=== PATIENT | male | born 1990 | race Caucasian/White ===

== ENCOUNTER 2016-07-11 09:51 | Emergency (ER) | payer BC, OTHER ==
--- NOTE | 2016-07-11 10:28 | EDPHY ---
H & P Time Seen by Provider: 07/11/16 10:00 HPI/ROS: CHIEF COMPLAINT: right hand pain HISTORY OF PRESENT ILLNESS: Patient is a 25-year-old male presents to the emergency department of right hand pain after punching a wall last evening. He states he has isolated pain at the base of his right 5th metacarpal. He sustained no other injury. He states he has previously injured his hand while punching a wall in this required surgery. REVIEW OF SYSTEMS: My complete review of systems is negative except as mentioned in the HPI. Past Medical/Surgical History: Right hand surgery Smoking Status: Never smoked Physical Exam: General Appearance: Alert and no distress. Head: Pupils equal. Normal. Respiratory: No respiratory distress. Cardiac: regular rate and rhythm. Extremities: patient has swelling over his right 4th and 5th metacarpal. There is tenderness palpation at the base of the right 4th and 5th metacarpal. No wrist tenderness palpation. No forearm, elbow or humerus tenderness palpation. The phalanges are nontraumatic and nontender. Skin: No rashes or lesions. Neuro: Alert. Normal mood and affect. Constitutional: Initial Vital Signs Temperature (C) 36.6 C 07/11/16 09:52 Heart Rate 69 07/11/16 09:52 Respiratory Rate 16 07/11/16 09:52 Blood Pressure 132/76 H 07/11/16 09:52 O2 Sat (%) 97 07/11/16 09:52 O2 Delivery Mode Room Air Allergies/Adverse Reactions: No Known Allergies Allergy (Unverified 10/27/10 16:48) Home Medications: Medication Instructions Recorded NK [No Known Home Meds] 07/11/16 Medical Decision Making ED Course/Re-evaluation: In the emergency department an x-ray was ordered. Right hand x-ray: Patient has a fracture at the base of the right 4th and 5th metacarpal. Please refer the dictated report by the radiologist. I discussed the result with the patient answered all his questions. He was placed in a ulnar gutter splint. He will follow up with the hand surgeon provided or his preferred orthopedic surgeon. He is given warnings prior to leaving. He will return with worsening symptoms. Clinical impression: Metacarpal fracture of the 4th and 5th right metacarpal at the base. This is an acute injury. Differential Diagnosis: My differential includes but is not limited to hand fracture, dislocation, contusion, ligamentous injury, wrist fracture Departure - Departure Disposition: Home, Routine, Self-Care Clinical Impression: metacarpal fracture Metacarpal bone fracture Qualifiers: Encounter type: initial encounter Metacarpal bone: fourth Fracture type: closed Metacarpal location: base Fracture morphology: unspecified fracture morphology Laterality: right Condition: Good Instructions: Hand Fracture (ED)
--- NOTE | 2016-07-11 10:33 | DX ---
Right hand, 3 views. History: Trauma, pain NSOC: ED Imaging SO, Adult/Peds-hand complaint is proximal to the web spaces o f the fingers and distal to the base of the thumb. Comparison examination: December 24, 2010 Findings: Acute displaced fractures through the bases of the fourth and fifth metacarpals identified . The proximal aspects of the metacarpals are minimally displaced dorsally. Prior ORIF right fifth metacarpal fracture with dorsal plate placement, healed. No other fracture identified. Impression: Acute fracture through the base of the right fourth and fifth metacarpals. Healed distal right fifth metacarpal fracture. Examination reviewed with Dr. Hannah Rodriguez.
[2016-07-11 11:19] VITALS: BP 122/56; PULSE 63; RESP 18; TEMP 98.4; O2SAT 98
== END 2016-07-11 11:17 | disposition home or self-care (01) ==
DX: S62.314A Displaced fracture of base of fourth metacarpal bone, right hand, initial encounter for closed fracture (principal); S62.316A Displaced fracture of base of fifth metacarpal bone, right hand, initial encounter for closed fracture; W22.8XXA Striking against or struck by other objects, initial encounter; Y93.89 Activity, other specified